=== PATIENT | female | born 1995 ===

== ENCOUNTER 2021-07-21 20:54 | Emergency (ER) | payer SELFPAY ==
[~2021-07-21] VITALS: Ht 157.5 cm; Wt 54.4 kg
== END 2021-07-21 23:28 | disposition home or self-care (01) ==
LOC: ER 23:22
DX: J02.0 Streptococcal pharyngitis (principal); E05.00 Thyrotoxicosis with diffuse goiter without thyrotoxic crisis or storm; Z88.0 Allergy status to penicillin; Z20.822 Contact with and (suspected) exposure to COVID-19
CPT/HCPCS: 83518; 99283; U0002